=== PATIENT | male | born 1965 | race Caucasian/White ===

== ENCOUNTER 2020-08-16 09:32 | Observation (INO) | payer OTHER ==
[~2020-08-16] VITALS: Ht 172.7 cm; Wt 108.2 kg
[2020-08-16] MEDS ORDERED: COREG 12.5MG12.5 MG PO (17:10)
[2020-08-16] MEDS ORDERED: ENTRESTO 24 MG1 EACH PO (17:10)
[2020-08-16] MEDS ORDERED: CETIRIZINE HCL10 MG PO (17:11)
[2020-08-16] MEDS ORDERED: ASPIRIN EC81 MG PO (17:11)
[2020-08-16] MEDS ORDERED: HYDROCODON-ACE1 EAC6 PO (17:11)
[2020-08-16] MEDS ORDERED: CRESTOR 10 MG T10 MG PO (17:12)
[2020-08-16] MEDS ORDERED: CLOPIDOGREL75 MG PO (17:12)
[2020-08-16] MEDS ORDERED: METOPROLOL SUCC25 MG PO (17:12)
[2020-08-16] MEDS ORDERED: OMEPRAZOLE20 MG PO (17:12)
[2020-08-16] MEDS ORDERED: NITROGLYCERIN0.4 MG SL (17:13)
[2020-08-16] MEDS ORDERED: ZYLOPRIM 300 M300 MG PO (17:13)
[2020-08-17 02:44] LABS: HEMOGLOBIN 14.7 gm/dl (14.0-17.5); RED BLOOD COUNT 4.08 M/UL (4.20-5.50)
[2020-08-17 03:02] LABS: BUN/CREATININE RATIO 17 (0-10)
== END 2020-08-17 13:46 | disposition home or self-care (01) ==
LOC: PROG CARE 13:56
PROVIDERS: ADMIT Internal Medicine Interventional Cardiology
DX: I25.10 Atherosclerotic heart disease of native coronary artery without angina pectoris (principal); I25.5 Ischemic cardiomyopathy; I47.2 Ventricular tachycardia; E78.2 Mixed hyperlipidemia; I73.9 Peripheral vascular disease, unspecified; F17.210 Nicotine dependence, cigarettes, uncomplicated; I10 Essential (primary) hypertension; M10.9 Gout, unspecified; Z79.02 Long term (current) use of antithrombotics/antiplatelets; Z79.82 Long term (current) use of aspirin; Z79.899 Other long term (current) drug therapy
CPT/HCPCS: 36415; 80048; 85027; 85347; 93005; 99152; 99153; C1725; C1760; C1769; C1874; C1887; C9600; G0278; G0378; G0379; J0461; J0690; J1644; J2250; J3010; J7040; Q9965